=== PATIENT | male | born 1995 | race Caucasian/White ===

== ENCOUNTER 2021-08-26 08:11 | Emergency (ER) | payer OTHER ==
[~2021-08-26] VITALS: Ht 182.9 cm; Wt 141.4 kg
[2021-08-26 08:11] VITALS: BP 160/88
[2021-08-26] MEDS ORDERED: KETOROLAC 15 MG/ML VIAL. IVP ONE (08:45)
[2021-08-26] MEDS ORDERED: IV NORMAL SALINE 1,000ML 1,000 ML IV SCH (08:45)
--- NOTE | 2021-08-26 09:08 | RAD ---
Exam performed: CT scan of the abdomen and pelvis without contrast. Clinical Indication: Reason: right flank, groin pain eval for ureteral calculi / Spl. Instructions: / History: Date of Service: 08/26/2021 8:52 AM. Comparison: None available Technique: Contiguous helical acquisitions are obtained through the abdomen and pelvis without IV con trast. Sagittal and coronal reformatted images are obtained and reviewed. CT abdomen and pelvis findings: There is a 3 mm tablet was in the distal right ureter at the vesicoureteric junction causing mild pro ximal hydroureteronephrosis and periureteral stranding. There is also a 2 to 3 mm left inferior renal pole calculus. No clear-cut renal mass is identified. The lung bases are essentially clear. Visualized heart is normal. Lack of IV contrast limits evaluation of abdominal viscera, however the spleen and pancreas are norm al. Diffuse hepatic steatosis. The gallbladder is distended. Both adrenal glands appear unremarkable. Small and large bowel loops are normal. The visualized portion of the appendix is unremarkable. Urinary bladder is decompressed. The prostate gland, seminal vesicles and rectum unremarkable. Bones are normal. Impression: 2 to 3 mm obstructing calculus in the distal right ureter at the vesicoureteric junction causing mild proximal obstructive changes. Nonobstructing 3 mm left inferior renal pole calculus. PQRS Compliance Statement: One or more of the following individualized dose reduction techniques were utilized for this examinat ion: 1. Automated exposure control 2. Adjustment of the mA and/or kV according to patient size 3. Use of iterative reconstruction technique Electronically signed by: Alecia Obrien MD (08/26/2021 9:06 AM) [facility]
[2021-08-26 09:09] LABS: CLARITY,URINE CLEAR; COLOR,URINE YELLOW; GLUCOSE,URINE NEG (NEG)
[2021-08-26 09:10] LABS: BACTERIA,URINE 0 /HPF (0-FEW); NITRITE,URINE NEG (NEG); SQUAMOUS EPITHELIAL CELL,UR FEW /LPF; UROBILINOGEN,URINE 0.2 mg/dL (0.2 mg/dL); WBC,URINE OCC /HPF (0-4)
[2021-08-26] MEDS ORDERED: TAMSULOSIN 0.4 MG CAP.ER.24H. PO ONE (09:15)
--- NOTE | 2021-08-26 09:15 | PHYS DOC ---
Past History Past Medical History: Asthma, Diabetes Past Surgical History: No Surgical History Smoking: Non-smoker Alcohol Use: Occasionally Drug Use: None General Adult EDM: Chief Complaint: GROIN PAIN HPI: HPI: 26-year-old male presents with report of right-sided flank pain that has been intermittent since waking this morning. Patient does report some associated nausea without vomiting. Patient reports recently had pain radiating to his right testicle. Patient reports sensation that he was "kicked in the balls ". Denies any fever or chills. Denies dysuria or hematuria. Denies penile discharge. Denies scrotal or testicular swelling. Patient does report some dark urine yesterday. Denies history of trauma. Denies rash. Denies history of kidney stones. Review of Systems: Review of Systems: Constitutional: Denies fever or chills Eyes: Denies redness or eye pain HENT: Denies nasal congestion or sore throat Respiratory: Denies cough or shortness of breath Cardiovascular: Denies chest pain or palpitations GI: Reports right-sided abdominal pain and nausea; denies vomiting : Denies dysuria or hematuria; reports "darker" urine and right groin pain Musculoskeletal: Reports right flank pain; denies joint pain Integument: Denies rash or skin lesions Neurologic: Denies headache, focal weakness or sensory changes Complete systems were reviewed and found to be within normal limits, except as documented in this note. Current Medications: Current Meds: Current Medications Medications (Trade) Dose Ordered Sig/Luanne Start Time Stop Time Status Last Admin Dose Admin Ketorolac Tromethamine (Toradol 15mg Vial) 15 mg 1X ONCE 08/26/21 08:45 08/26/21 08:46 DC 08/26/21 09:04 15 MG Sodium Chloride 1,000 ml @ 1,000 mls/hr Q1H 08/26/21 08:45 08/26/21 09:44 08/26/21 09:04 1,000 MLS/HR Allergies: Allergies: Allergies Coded Allergies Type Severity Reaction Last Updated Verified No Known Drug Allergies 08/26/21 No Physical Exam: PE: Constitutional: Well developed, obese, no acute distress, non-toxic appearance HENT: Normocephalic, atraumatic Eyes: Conjunctiva normal, no discharge Neck: Normal range of motion, supple Lungs & Thorax: No respiratory distress, equal chest rise and fall Abdomen: Soft, no tenderness, no guarding/rebound tenderness/distention Skin: Warm, dry, no erythema, no rash Back: No tenderness, no CVA tenderness Extremities: No tenderness, ROM intact, no edema Neurologic: Alert and oriented X 3, no focal deficits noted Psychologic: Affect normal, judgment normal Current Patient Data: Labs: Laboratory Tests Test 08/26/21 08:43 Urine Collection Type Unknown Urine Color Yellow Urine Clarity Clear Urine pH 6.0 Urine Specific [place] >=1.030 Urine Protein Trace (NEG-TRACE) Urine Glucose (UA) Neg mg/dL (NEG) Urine Ketones (Stick) Neg mg/dL (NEG) Urine Blood Mod (NEG) Urine Nitrite Neg (NEG) Urine Bilirubin Neg (NEG) Urine Urobilinogen Dipstick 0.2 mg/dL (0.2 mg/dL) Urine Leukocyte Esterase Neg (NEG) Urine RBC 11-20 /HPF (0-2) Urine WBC Occ /HPF (0-4) Urine Squamous Epithelial Cells Few /LPF Urine Bacteria 0 /HPF (0-FEW) Urine Mucus Slight /LPF Vital Signs: Vital Signs Date Time Temp Pulse Resp B/P (MAP) Pulse Ox O2 Delivery O2 Flow Rate FiO2 08/26/21 08:11 97.9 88 16 160/88 (112) 98 08/26/21 08:11 Room Air EKG: EKG: [] Radiology/Procedures: Radiology/Procedures: PROCEDURE: CT ABDOMEN PELVIS WO CONTRAST Exam performed: CT scan of the abdomen and pelvis without contrast. Clinical Indication: Reason: right flank, groin pain eval for ureteral calculi / Spl. Instructions: / History: Date of Service: 08/26/2021 8:52 AM. Comparison: None available Technique: Contiguous helical acquisitions are obtained through the abdomen and pelvis without IV contrast. Sagittal and coronal reformatted images are obtained and reviewed. CT abdomen and pelvis findings: There is a 3 mm tablet was in the distal right ureter at the vesicoureteric junction causing mild proximal hydroureteronephrosis and periureteral stranding. There is also a 2 to 3 mm left inferior renal pole calculus. No clear-cut renal mass is identified. The lung bases are essentially clear. Visualized heart is normal. Lack of IV contrast limits evaluation of abdominal viscera, however the spleen and pancreas are normal. Diffuse hepatic steatosis. The gallbladder is distended. Both adrenal glands appear unremarkable. Small and large bowel loops are normal. The visualized portion of the appendix is unremarkable. Urinary bladder is decompressed. The prostate gland, seminal vesicles and rectum unremarkable. Bones are normal. Impression: 2 to 3 mm obstructing calculus in the distal right ureter at the vesicoureteric junction causing mild proximal obstructive changes. Nonobstructing 3 mm left inferior renal pole calculus. PQRS Compliance Statement: One or more of the following individualized dose reduction techniques were utilized for this examination: 1. Automated exposure control 2. Adjustment of the mA and/or kV according to patient size 3. Use of iterative reconstruction technique Electronically signed by: Alecia Obrien MD (08/26/2021 9:06 AM) [facility] Heart Score: C/O Chest Pain: N/A Course & Med Decision Making: Course & Med Decision Making Pertinent Labs and Imaging studies reviewed. (See chart for details) Patient presents with HPI and physical exam concerning for kidney stones. Pain addressed. IV fluid hydration given. Labs obtained and posted to chart. UA with signs of microscopic hematuria. Creatinine stable. CT abdomen/pelvis with findings of distal 3 mm stone at UVJ with mild hydronephrosis. Flomax therefore provided. Patient stable for discharge with outpatient follow-up with PCP. Discussed findings and plan with patient and spouse, who acknowledge understanding and agreement. Celine Disclaimer: Celine Disclaimer: This electronic medical record was generated, in whole or in part, using a voice recognition dictation system. Departure Departure: Impression: Primary Impression: Kidney stone on right side Disposition: HOME / SELF CARE / HOMELESS Condition: STABLE Referrals: PAULINE KO MD (PCP) Patient Instructions: Diet for Kidney Stones, Kidney Stones, [id number] Additional Instructions: Increase fluid hydration. Follow closely with your urologist for further evaluation and treatment. Scripts Tamsulosin Hcl (FLOMAX) 0.4 Mg Cap.er.24h 1 CAP PO DAILY for kidney stone for 6 Days, #6 CAP Prov: ANIYA GENAO DO 08/26/21 Ondansetron (ONDANSETRON ODT) 4 Mg Tab.rapdis 4 MG PO Q4-6HRS PRN for PAIN, #14 TAB Prov: ANIYA GENAO DO 08/26/21 Tramadol Hcl (TRAMADOL HCL) 50 Mg Tablet 50 MG PO PRN Q6HRS PRN for PAIN, #10 TAB Prov: ANIYA GENAO DO 08/26/21 ANIYA GENAO DO Aug 26, 2021 09:15
[2021-08-26] MEDS ORDERED: TAMS0.4C97 PO (09:26)
[2021-08-26] MEDS ORDERED: ONDA4TAB12 PO (09:26)
[2021-08-26] MEDS ORDERED: TRAM50TA PO (09:26)
[2021-08-26 09:27] LABS: BASO % 1 % (0-3); EOS # 0.1 x10^3/uL (0.0-0.7); EOS % 1 % (0-3); HEMATOCRIT 47.5 % (39.0-53.0); HEMOGLOBIN 16.1 g/dL (13.0-17.5); LYMPH # 2.7 x10^3/uL (1.0-4.8); LYMPH % 41 % (24-48); MEAN CORPUSCULAR HEMOGLOBIN 29 pg (25-35); MEAN CORPUSCULAR HGB CONC 34 g/dL (31-37); MEAN CORPUSCULAR VOLUME 84 fL (79-100); MONO # 0.3 x10^3/uL (0.0-1.1); MONO % 4 % (0-9); NEUT # 3.6 x10^3uL (1.8-7.7); NEUT % 54 % (31-73); PLATELET COUNT 182 x10^3/uL (140-400); RED BLOOD COUNT 5.63 x10^6/uL (4.30-5.70); RED CELL DISTRIBUTION WIDTH 13.7 % (11.5-14.5); WHITE BLOOD COUNT 6.7 x10^3/uL (4.0-11.0)
[2021-08-26 09:29] LABS: CALCIUM 9.2 mg/dL (8.5-10.1); CREATININE 0.9 mg/dL (0.7-1.3); GFR 102.8; POTASSIUM 4.3 mmol/L (3.5-5.1)
[2021-08-26 09:35] LABS: ALBUMIN/GLOBULIN RATIO 1.1 (1.0-1.7); MAGNESIUM 2.1 mg/dL (1.8-2.4); TOTAL BILIRUBIN 0.6 mg/dL (0.2-1.0); TOTAL PROTEIN 7.8 g/dL (6.4-8.2)
== END 2021-08-26 09:50 | disposition home or self-care (01) ==
LOC: ER 08:11
DX: N13.2 Hydronephrosis with renal and ureteral calculous obstruction (principal); J45.909 Unspecified asthma, uncomplicated; E11.9 Type 2 diabetes mellitus without complications
CPT/HCPCS: 36415; 74176; 80053; 81001; 83690; 83735; 85025; 96361; 96374; 99284; J1885; J7030

== ENCOUNTER 2021-10-14 20:47 | Emergency (ER) | payer OTHER ==
[~2021-10-14] VITALS: Ht 182.9 cm; Wt 136.6 kg
[~2021-10-14 20:47] MED LIST: ONDA4TAB12 PO; TAMS0.4C97 PO; TRAM50TA PO
[2021-10-14 20:53] VITALS: BP 167/97
--- NOTE | 2021-10-14 21:15 | PHYS DOC ---
Past History Past Medical History: Asthma, Diabetes Past Surgical History: No Surgical History Smoking: Non-smoker Alcohol Use: Occasionally Drug Use: None General Adult EDM: Chief Complaint: SUICIDAL IDEATION HPI: HPI: 26-year-old male presents with suicidal ideation. The patient was having a disagreement with his earlier today. He was talking about suicidal thoughts and put a gun to his head. Emergency services was called and EMS brought the patient to the emergency room. Patient denies suicidal ideation at this time. He states that he was just overly mad in the moment. The weapons have been removed from the home. Patient denies any medical complaints. Review of Systems: Review of Systems: Constitutional: Denies fever or chills Eyes: Denies change in visual acuity HENT: Denies nasal congestion or sore throat Respiratory: Denies cough or shortness of breath Cardiovascular: Denies chest pain or edema GI: Denies abdominal pain, nausea, vomiting, bloody stools or diarrhea : Denies dysuria Musculoskeletal: Denies back pain or joint pain Integument: Denies rash Neurologic: Denies headache, focal weakness or sensory changes Endocrine: Denies polyuria or polydipsia Lymphatic: Denies swollen glands Psychiatric: Suicidal ideation. Allergies: Allergies: Allergies Coded Allergies Type Severity Reaction Last Updated Verified No Known Drug Allergies 08/26/21 No Physical Exam: PE: Constitutional: Well developed, well nourished, morbidly obese, no acute distress, non-toxic appearance. [] HENT: Normocephalic, atraumatic, bilateral external ears normal, oropharynx moist, no oral exudates, nose normal. [] Eyes: PERRLA, EOMI, conjunctiva normal, no discharge. [] Neck: Normal range of motion, no tenderness, supple, no stridor. [] Cardiovascular: Heart rate regular rhythm, no murmur [] Lungs & Thorax: Bilateral breath sounds clear to auscultation [] Abdomen: Bowel sounds normal, soft, no tenderness, no masses, no pulsatile masses. [] Skin: Warm, dry, no erythema, no rash. [] Back: No tenderness, no CVA tenderness. [] Extremities: No tenderness, no cyanosis, no clubbing, ROM intact, no edema. [] Neurologic: Alert and oriented X 3, normal motor function, normal sensory function, no focal deficits noted. [] Psychologic: Affect normal, judgement normal, mood normal. [] Current Patient Data: Vital Signs: Vital Signs Date Time Temp Pulse Resp B/P (MAP) Pulse Ox O2 Delivery O2 Flow Rate FiO2 10/14/21 20:53 98.0 121 20 167/97 (120) 97 Room Air EKG: EKG: [] Radiology/Procedures: Radiology/Procedures: [] Heart Score: C/O Chest Pain: N/A Risk Factors: Risk Factors: DM, Current or recent (<one month) smoker, HTN, HLP, family history of CAD, obesity. Risk Scores: Score 0 - 3: 2.5% MACE over next 6 weeks - Discharge Home Score 4 - 6: 20.3% MACE over next 6 weeks - Admit for Clinical Observation Score 7 - 10: 72.7% MACE over next 6 weeks - Early Invasive Strategies Course & Med Decision Making: Course & Med Decision Making Pertinent Labs and Imaging studies reviewed. (See chart for details) The patient's labs are unremarkable. COVID is negative. He is medically stable for behavioral health evaluation. The behavioral team has evaluated the patient and determined that he can be discharged with a safety plan and go home with a family member. I believe this is reasonable. The patient is stable for discharge at this time. [] Dragon Disclaimer: Dragon Disclaimer: This electronic medical record was generated, in whole or in part, using a voice recognition dictation system. Departure Departure: Impression: Primary Impression: Suicidal ideation Disposition: HOME / SELF CARE / HOMELESS Condition: STABLE Referrals: PAULINE KO MD (PCP) Patient Instructions: Suicidal Feelings, How to Help Yourself NATALIE HERNANDES DO October 14, 2021 21:15
[2021-10-14 21:46] LABS: BASO # 0.1 x10^3/uL (0.0-0.2); BASO % 1 % (0-3); EOS % 0 % (0-3); HEMATOCRIT 45.7 % (39.0-53.0); HEMOGLOBIN 15.7 g/dL (13.0-17.5); LYMPH # 1.8 x10^3/uL (1.0-4.8); LYMPH % 20 % (24-48); MEAN CORPUSCULAR HEMOGLOBIN 29 pg (25-35); MEAN CORPUSCULAR HGB CONC 34 g/dL (31-37); MEAN CORPUSCULAR VOLUME 84 fL (79-100); MONO # 0.4 x10^3/uL (0.0-1.1); MONO % 5 % (0-9); NEUT # 6.6 x10^3uL (1.8-7.7); NEUT % 74 % (31-73); PLATELET COUNT 180 x10^3/uL (140-400); RED BLOOD COUNT 5.43 x10^6/uL (4.30-5.70); RED CELL DISTRIBUTION WIDTH 14.2 % (11.5-14.5); WHITE BLOOD COUNT 8.9 x10^3/uL (4.0-11.0)
[2021-10-14 21:56] LABS: CALCIUM 9.1 mg/dL (8.5-10.1); POTASSIUM 3.3 mmol/L (3.5-5.1)
[2021-10-14 22:02] LABS: ALBUMIN 3.7 g/dL (3.4-5.0); TOTAL BILIRUBIN 0.5 mg/dL (0.2-1.0); TOTAL PROTEIN 7.4 g/dL (6.4-8.2)
== END 2021-10-15 00:29 | disposition home or self-care (01) ==
LOC: ER 20:47
DX: R45.851 Suicidal ideations (principal); J45.909 Unspecified asthma, uncomplicated; E11.9 Type 2 diabetes mellitus without complications; Z20.822 Contact with and (suspected) exposure to COVID-19
CPT/HCPCS: 80053; 85025; 87426; 99285; C9803; U0003